=== PATIENT | female | born 1950 | race Caucasian/White ===

== ENCOUNTER 2023-12-10 07:00 | Day surgery (SDC) | payer MEDICARE ==
[~2023-12-10 07:00] MED LIST: Sodium Chloride 0.9% 10 ML Syringe FLUSH PRN
[2023-12-10] MEDS ORDERED: Propofol 200 MG/20 ML SDV ONE ×3 (07:02)
[2023-12-10] MEDS ORDERED: fentaNYL 100 MCG/2 ML SDV ONE (07:02)
[2023-12-10] MEDS ORDERED: Midazolam 1 MG/ML 2 ML SDV ONE (07:03)
[2023-12-10] MEDS ORDERED: Ropivacaine 0.5% 5 MG/ML 30 ML SDV ONE (07:07)
[2023-12-10] MEDS ORDERED: Ondansetron 4 MG/2 ML SDV IVPUSH PRN (07:18)
[2023-12-10] MEDS ORDERED: fentaNYL 100 MCG/2 ML SDV IVPUSH PRN (07:18)
[2023-12-10] MEDS ORDERED: HYDROmorphone 0.5 MG/0.5 ML Syringe IVPUSH PRN (07:18)
[2023-12-10] MEDS: Lactated Ringers 1,000 ML IV SCH (07:30)
[2023-12-10] MEDS: Acetaminophen 325 MG Tab PO ONE (08:00)
[2023-12-10] MEDS: Pregabalin 25 MG Cap PO ONE (08:00)
[2023-12-10] MEDS: oxyCODONE ER 10 MG TAB.ER PO ONE (08:00)
[2023-12-10 08:05] LABS: A/G RATIO 0.9 (1-2); ALBUMIN 3.4 g/dl (3.4-5.0); ANION GAP 14.1 (5-15); BILIRUBIN TOTAL 0.7 mg/dL (0.2-1.0); BUN/CREATININE RATIO 23.3 (14-18); CREATININE 0.9 mg/dL (0.55-1.02); EST CRCL DRUG DOSING (CG) 40.58 mL/min; POTASSIUM,K 4.1 mEq/L (3.5-5.1)
[2023-12-10] MEDS ORDERED: ceFAZolin 2 GM Vial ONE (08:33)
[2023-12-10] MEDS ORDERED: Dexamethasone 4 MG/ML 5 ML MDV ONE (08:54)
[2023-12-10] MEDS ORDERED: Sodium Chloride 0.9% 100 ML ONE (08:54)
[2023-12-10] MEDS ORDERED: Phenylephrine 1% 10 MG/ML SDV ONE (08:54)
[2023-12-10] MEDS ORDERED: ePHEDrine 50 MG/ML SDV ONE (08:54)
[2023-12-10] MEDS ORDERED: Lactated Ringers 1,000 ML IV ONE (09:00)
[2023-12-10] MEDS ORDERED: Sodium Chloride 0.9% 10 ML Syringe FLUSH SCH (09:00)
[2023-12-10] MEDS: Vancomycin 1 GM SDV ONE (09:18)
[2023-12-10] MEDS: Tranexamic Acid 1,000 MG/10 ML Vial ONE (09:18)
[2023-12-10] MEDS: Morphine 8 MG, EPINEPHrine 0.3 MG, Cefuroxime 750 MG, Ketorolac 30 MG, Sodium Chloride ... PRN (09:24)
[2023-12-10] MEDS: oxyCODONE 5 MG Tab PO PRN (12:34)
== END 2023-12-10 14:55 | disposition home or self-care (01) ==
LOC: JD.SDS 07:00
PROVIDERS: ATTEND Orthopaedic Surgery
DX: M17.11 Unilateral primary osteoarthritis, right knee (principal); K21.9 Gastro-esophageal reflux disease without esophagitis; M81.0 Age-related osteoporosis without current pathological fracture; Z87.891 Personal history of nicotine dependence; Z79.899 Other long term (current) drug therapy; Z88.2 Allergy status to sulfonamides
CPT/HCPCS: 0055T; 27447; 36415; 73560; 80053; 97110; 97161; C1713; C1776; J0171; J0690; J0697; J1100; J1885; J2250; J2270; J2371; J2704; J2795; J3010; J3370; J3490; J7120; 01402; 64447; 99100; A9270-GY